=== PATIENT | female | born 1970 | race Caucasian/White ===

== ENCOUNTER 2024-06-16 10:39 | Emergency (ER) | payer SELFPAY ==
[~2024-06-16] VITALS: Ht 170.2 cm; Wt 90.7 kg
[2024-06-16] MEDS ORDERED: BACTRIM DS1 TAB PO (11:13)
[2024-06-16 11:37] VITALS: BP 148/78
== END 2024-06-16 11:37 | disposition home or self-care (01) | DRG 607 ==
LOC: ED 10:39
PROC: 0H96XZZ Drainage of Back Skin, External Approach (ICD-10-PCS; principal; 2024-06-16)
DX: L72.3 Sebaceous cyst (principal)